=== PATIENT | female | born 1980 | race Caucasian/White ===

== ENCOUNTER 2017-06-29 16:04 | Emergency (ER) | payer BC, SELFPAY ==
[2017-06-29 16:12] VITALS: BP 185/113; PULSE 84; RESP 18; TEMP 36.8; O2SAT 99; BMI 25.8
--- NOTE | 2017-06-29 16:47 | [facility].EDGENADL ---
ED Disposition Clinical Impression: Cervical paraspinal muscle spasm Disposition: Home, Self-Care Condition on Discharge: Good Additional Instructions: DI for neck strain Prescriptions: Ketorolac Tromethamine [Toradol 10mg tablet] 10 mg PO Q6H 5 Days #20 tab Methocarbamol [Robaxin 750mg Tab] 750 mg PO BID #20 tab - Critical Care Critical Care Time: No Attestation: On 06/29/17, the high probability of a clinically significant, sudden or life threatening deterioration of the following system(s) required my full and direct attention, intervention and personal management. The time I documented below is in addition to time spent performing reported procedures but includes the following listed in this critical care notation. Medical Decision Making - Medical Records Medical records reviewed: Yes: I reviewed the patient's medical records. - Armand Inquiry Pt receiving controlled substance: No Armand was queried for this patient: No Vital Signs: 06/29/17 16:12 Temperature 98.2 F Temperature Source Oral Pulse Rate [Right Brachial] 84 Respiratory Rate 18 Blood Pressure [Right Arm] 185/113 Blood Pressure Mean [Right Arm] 137 Blood Pressure Source [Right Arm] Automatic Cuff Blood Pressure Position [Right Arm] Sitting 02 Sat by Pulse Oximetry 99 Oxygen Delivery Method Room Air Medical Decision Narrative: doubt need xray will give Im Toradol, soft collar and Rx Robaxin General Adult HPI - General Chief complaint: PAIN Stated complaint: AO [id number] Pepper spray Time Seen by Provider: 06/29/17 16:40 Mode of Arrival: Family Vehicle Limitations: No Limitations Description of Symptoms (Recalled from ER Triage Doc. by RN): C/O NECK PAIN AND UNABLE TO TURN HEAD SINCE YESTERDAY WHEN SHE WAS IN TRAINING AND WAS PEPPER SPRAYED AND IMMEDIATELY DEVELOPED TEMPORARY BLINDNESS, HEADACHE, AND NAUSEA/VOMITING ALONG WITH NECK STIFFNESS - History of Present Illness Onset (ago): day(s) (1) Location: neck Radiation: non-radiation Severity: moderate Severity scale (1-10): 7 Quality: aching Consistency: constant Relieving factors: none Exacerbating factors: movement Treatments prior to arrival: NSAID - Related Data Home Medications Medication Instructions Recorded Confirmed PARoxetine HCl [Paxil 20mg Tablet] 20 mg PO DAILY 06/29/17 06/29/17 Previous Rx's Medication Instructions Recorded Ketorolac Tromethamine [Toradol 10 mg PO Q6H 5 Days #20 tab 03/30/18 10mg tablet] Methocarbamol [Robaxin 750mg Tab] 750 mg PO BID #20 tab 06/29/17 Allergies Allergy/AdvReac Type Severity Reaction Status Date / Time No Known Allergies Allergy Verified 06/29/17 16:18 [facility] History I have reviewed the patient's past medical history: Yes Medical History: Denies:: Cancer, Diabetes Mellitus Type 1, Diabetes Mellitus Type 2, MRSA Amputation: No Fractures: No - Social History Smoking Status: Current every day smoker Tobacco Type: cigarettes Alcohol Intake: never - Psychiatric History Expresses thoughts of harming self/others: None Suicide Plan Description: No Plan ROS Obtained: Yes All systems reviewed & no additional complaints - Musculoskeletal Musculoskeletal: Reports joint stiffness, Reports limited range of motion, Reports neck pain Physical Exam - General General appearance: alert, in no apparent distress - Head Head exam: atraumatic, normocephalic, normal inspection - Eye Eye exam: Present: normal appearance, PERRL, EOMI - ENT ENT exam: Present: normal exam, normal oropharynx, mucous membranes moist, TM's normal bilaterally, normal external ear exam - Neck Neck exam: Present: normal inspection, full ROM, trachea midline, tenderness (bilateral tenderness without paracervical spasm). Absent: meningismus, lymphadenopathy - Chest Chest inspection: Present: normal inspection, symmetric chest wall rise. Absent: tenderness - Respiratory Respiratory exam: Present: norm
--- NOTE | 2017-06-29 16:50 | ED_ITS ---
ED Disposition Clinical Impression: Cervical paraspinal muscle spasm Disposition: Home, Self-Care Condition on Discharge: Good Additional Instructions: DI for neck strain Prescriptions: Ketorolac Tromethamine [Toradol 10mg tablet] 10 mg PO Q6H 5 Days #20 tab Methocarbamol [Robaxin 750mg Tab] 750 mg PO BID #20 tab - Critical Care Critical Care Time: No Attestation: On 06/29/17, the high probability of a clinically significant, sudden or life threatening deterioration of the following system(s) required my full and direct attention, intervention and personal management. The time I documented below is in addition to time spent performing reported procedures but includes the following listed in this critical care notation. Medical Decision Making - Medical Records Medical records reviewed: Yes: I reviewed the patient's medical records. - Armand Inquiry Pt receiving controlled substance: No Armand was queried for this patient: No Vital Signs: 06/29/17 16:12 Temperature 98.2 F Temperature Source Oral Pulse Rate [Right Brachial] 84 Respiratory Rate 18 Blood Pressure [Right Arm] 185/113 Blood Pressure Mean [Right Arm] 137 Blood Pressure Source [Right Arm] Automatic Cuff Blood Pressure Position [Right Arm] Sitting 02 Sat by Pulse Oximetry 99 Oxygen Delivery Method Room Air Medical Decision Narrative: doubt need xray will give Im Toradol, soft collar and Rx Robaxin General Adult HPI - General Chief complaint: PAIN Stated complaint: AO [id number] Pepper spray Time Seen by Provider: 06/29/17 16:40 Mode of Arrival: Family Vehicle Limitations: No Limitations Description of Symptoms (Recalled from ER Triage Doc. by RN): C/O NECK PAIN AND UNABLE TO TURN HEAD SINCE YESTERDAY WHEN SHE WAS IN TRAINING AND WAS PEPPER SPRAYED AND IMMEDIATELY DEVELOPED TEMPORARY BLINDNESS, HEADACHE, AND NAUSEA/ VOMITING ALONG WITH NECK STIFFNESS - History of Present Illness Onset (ago): day(s) (1) Location: neck Radiation: non-radiation Severity: moderate Severity scale (1-10): 7 Quality: aching Consistency: constant Relieving factors: none Exacerbating factors: movement Treatments prior to arrival: NSAID - Related Data Home Medications Medication Instructions Recorded Confirmed PARoxetine HCl [Paxil 20mg Tablet] 20 mg PO DAILY 06/29/17 06/29/17 Previous Rx's Medication Instructions Recorded Ketorolac Tromethamine [Toradol 10 mg PO Q6H 5 Days #20 tab 03/30/18 10mg tablet] Methocarbamol [Robaxin 750mg Tab] 750 mg PO BID #20 tab 06/29/17 Allergies Allergy/AdvReac Type Severity Reaction Status Date / Time No Known Allergies Allergy Verified 06/29/17 16:18 [facility] History I have reviewed the patient's past medical history: Yes Medical History: Denies:: Cancer, Diabetes Mellitus Type 1, Diabetes Mellitus Type 2, MRSA Amputation: No Fractures: No - Social History Smoking Status: Current every day smoker Tobacco Type: cigarettes Alcohol Intake: never - Psychiatric History Expresses thoughts of harming self/others: None Suicide Plan Description: No Plan ROS Obtained: Yes All systems reviewed & no additional complaints - Musculoskeletal Musculoskeletal: Reports joint stiffness, Reports limited range of motion, Reports neck pain Physic
[2017-06-29 17:06] VITALS: BP 190/124; PULSE 83; RESP 20; TEMP 36.9; O2SAT 99
[2017-06-29 17:24] VITALS: BP 190/124; PULSE 83; RESP 18; TEMP 36.9; O2SAT 99
== END 2017-06-29 17:10 | disposition home or self-care (01) ==
PROVIDERS: Emergency Provider Family Medicine
DX: M62.838 Other muscle spasm (principal); R51 Headache; M54.5 Low back pain; F17.210 Nicotine dependence, cigarettes, uncomplicated
CPT/HCPCS: 96372; 99282